=== PATIENT | female | born 1975 | race Caucasian/White ===

== ENCOUNTER → 2016-08-20 | Outpatient (CLI) | payer BC ==
[~2016-08-20] MED LIST: ERGO1CAP35 PO; ESCI10TA17 PO; OXYC-57 PO; SUMA100T16 PO
[2016-08-20 14:20] LABS: BASO % 0.2 %; BASO ABS # 0.01 K/uL (0-0.2); EOS % 1.5 %; HEMATOCRIT 41.4 % (37-47); IG% 0.5 %; LYMPH % 12.2 %; LYMPH ABS # 0.73 K/uL (1.2-3.4); MEAN CORPUSCULAR HEMOGLOBIN 29.3 pg (25-34); MEAN PLATELET VOLUME 10.2 fL (7.4-10.4); NEUT % 81.6 %; PLATELET COUNT 244 K/uL (130-400); WHITE BLOOD COUNT 5.96 K/uL (4.8-10.8)
[2016-08-20 14:21] LABS: COMPLETE YES; MEAN CORPUSCULAR HGB CONC 32.6 g/dl (32-36)
[2016-08-20 14:50] LABS: ALB/GLOB RATIO 0.9 (0.9-2); ALKALINE PHOSPHATASE 90 U/L (45-117); ALT/SGPT 33 U/L (12-78); AST/SGOT 22 U/L (15-37); BLOOD UREA NITROGEN 7 mg/dl (7-18); BUN/CREATININE RATIO 6.1 (10-20); CALCIUM 8.8 mg/dl (8.5-10.1); CARBON DIOXIDE 25 mmol/L (21-32); CHLORIDE 106 mmol/L (98-107); GLUCOSE 285 mg/dl (70-99); POTASSIUM 3.9 mmol/L (3.5-5.1); SODIUM 140 mmol/L (136-145)
--- NOTE | 2016-08-20 15:28 | DIAGNOSTIC IMAGING REPORT ---
CT ANGIOGRAM OF THE CHEST CLINICAL HISTORY: Atypical chest pain. Dyspnea. Hypoxia. Tachycardia. COMPARISON STUDY: No priors. TECHNIQUE: Following the IV administration of 85 cc of Optiray 320, CT angiogram of the chest was performed from the upper abdomen to the thoracic inlet utilizing the pulmonary embolus protocol. Images are reviewed in the axial, sagittal, and coronal planes. 3-D MIPS images are created and assessed. IV contrast was administered without complication. The examination is moderately degraded by motion artifact. CT DOSE: 629.39 mGy.cm FINDINGS: Thyroid: Imaged portions of the thyroid gland are normal in size and attenuation. A 10 mm low-attenuation nodule is noted in the left lobe. Thoracic aorta: The thoracic aorta is normal in caliber and demonstrates standard 3-vessel arch anatomy. No dissection is seen. Pulmonary vasculature: The pulmonary trunk is normal in caliber. There are no filling defects identified in main, lobar, or proximal segmental pulmonary branches to suggest pulmonary embolus. Evaluation of the peripheral branches is degraded by motion artifact. Heart: The heart is mildly enlarged and without pericardial effusion. Lungs and pleural spaces: Evaluation of the lung parenchyma is degraded by respiratory motion artifact. No airspace consolidation or pleural effusion is seen. The trachea and central airways are clear. Mediastinum: There is no mediastinal lymphadenopathy. Netta: Clear. Axillae: There is no axillary lymphadenopathy. Upper abdomen: The liver is enlarged and steatotic. Partially visualized upper abdominal viscera is otherwise within normal limits. Skeletal structures: No lytic or blastic bony lesions are seen. IMPRESSION: 1. There is no evidence of pulmonary embolus in the main, lobar, or proximal segmental pulmonary arteries. 2. The lungs are clear. 3. Hepatomegaly and severe hepatic steatosis. 4. Mild cardiomegaly. 5. There is a 10 mm low-attenuation nodule in the left lobe of the thyroid gland. Follow-up with a nonemergent thyroid ultrasound is recommended for further interrogation. Electronically signed by: Carlos Hills M.D. 08/20/2016 3:27 PM Dictated Date/Time: 08/20/2016 3:23 PM
== END | disposition home or self-care (01) ==
LOC: C.CTS 13:56
PROVIDERS: ATTEND Family Medicine
DX: R06.02 Shortness of breath (principal); R07.9 Chest pain, unspecified; R09.02 Hypoxemia; K76.0 Fatty (change of) liver, not elsewhere classified; I51.7 Cardiomegaly; R16.0 Hepatomegaly, not elsewhere classified

== ENCOUNTER → 2016-08-22 | Outpatient (CLI) | payer BC ==
--- NOTE | 2016-08-22 13:51 | DIAGNOSTIC IMAGING REPORT ---
THYROID ULTRASOUND HISTORY: CARDIOMEGALY, THYROID NODULE SEEN ON CT COMPARISON: Chest CT 08/20/2016. FINDINGS: Right lobe: 4.7 x 2.1 x 1.3 cm. No nodules. Left lobe: 4.2 x 1.4 x 1.5 cm. There is a heterogeneous solid nodule within the lower pole containing punctate internal calcifications. This measures 1.6 x 0.8 x 1.2 cm. Isthmus: 5 mm in thickness. No nodules. IMPRESSION: A 1.6 x 1.2 x 0.8 cm nodule within the lower pole of the left thyroid lobe. Recommend ultrasound-guided fine-needle aspiration for further evaluation. Electronically signed by: Dirk Humphrey M.D. 08/22/2016 1:50 PM Dictated Date/Time: 08/22/2016 1:48 PM
--- NOTE | 2016-08-23 18:11 | ECHOCARDIOGRAM REPORT ---
*NOTICE TO RECEIVING [employer] This information is strictly Confidential and protected under [place] law. [place] law prohibits you from making any further disclosure of this information unless further disclosure is expressly permitted by the written consent of the person to whom it pertains or is authorized by law. A general authorization for the release of medical or other information is not sufficient for this purpose. Hospital accepts no responsibility if the information is made available to any other person, INCLUDING THE PATIENT. Interpretation Summary * Name: GRACIELA GARDNER Study Date: 08/22/2016 01:54 PM BP: 155/72 mmHg * Patient Location: [facility] HR: 98 * : 1975 (M/d/yyyy) Gender: Female Height: 60 in * Age: 41 yrs Ethnicity: CA Weight: 225 lb * * Reason For Study: CARDIOMEGALY * BSA: 2.0 m2 * -- Conclusions -- * 1. The left ventricle is normal in size. Left ventricular systolic function is normal. EF 55-60%. No regional wall motion abnormalities. There is normal left ventricular wall thickness. * 2. No significant valvular abnormalities. * 3. No prior study available for comparison. Procedure Details * A complete two-dimensional transthoracic echocardiogram was performed (2D, M-mode, Doppler and color flow Doppler). Left Ventricle * The left ventricle is normal in size. * There is normal left ventricular wall thickness. * Left ventricular systolic function is normal. * Ejection Fraction = 55-60%. * No regional wall motion abnormalities noted. Right Ventricle * The right ventricle is normal in size and function. * The right ventricular systolic function is normal as assessed by tricuspid annular plane systolic excursion (TAPSE) (normal >1.5 cm). Atria * The left atrial size is normal. * Right atrial size is normal. * There is no evidence of atrial septal defect, but resolution does not allow assessment for a patent foramen ovale. Mitral Valve * The mitral valve leaflets appear normal. There is no evidence of stenosis, fluttering, or prolapse. * There is no mitral regurgitation noted. Tricuspid Valve * The tricuspid valve is not well visualized, but is grossly normal. * There is no tricuspid stenosis. * There is trace tricuspid regurgitation. Aortic Valve * The aortic valve is normal in structure and function. * The aortic valve is trileaflet. * No hemodynamically significant valvular aortic stenosis. * No aortic regurgitation is present. Pulmonic Valve * The pulmonary valve is inadequately visualized, but the Doppler data is adequate for interpretation. * There is no pulmonic valvular stenosis. * There is no significant pulmonary regurgitation. Great Vessels * The aortic root is normal size. * Aortic arch of normal dimension. Pericardium/Pleural * There is no pericardial effusion. Great Vessels * IVC not well visualized. MMode 2D Measurements and Calculations IVSd 1.0 cm IVSs 1.3 cm LVIDd 3.6 cm LVIDs 2.5 cm LVPWd 1.1 cm LVPWs 1.6 cm IVS/LVPW 0.93 FS 31.3 % EDV(Teich) 55.7 ml ESV(Teich) 22.3 ml EF(Teich) 60.0 % EDV(cubed) 48.0 ml ESV(cubed) 15.6 ml EF(cubed) 67.5 % % IVS thick 32.5 % % LVPW thick 46.4 % LV mass(C)d 117.0 grams LV mass(C)dI 59.6 grams/m\S\2 LV mass(C)s 120.2 grams LV mass(C)sI 61.3 grams/m\S\2 SV(Teich) 33.4 ml SI(Teich) 17.0 ml/m\S\2 SV(cubed) 32.4 ml SI(cubed) 16.5 ml/m\S\2 Ao root diam 3.1 cm Ao root area 7.7 cm\S\2 LA dimension 3.2 cm LA/Ao 1.0 LVAd ap4 25.2 cm\S\2 LVLd ap4 7.6 cm EDV(MOD-sp4) 68.2 ml EDV(sp4-el) 70.4 ml LVAs ap4 16.1 cm\S\2 LVLs ap4 7.2 cm ESV(MOD-sp4) 30.1 ml ESV(sp4-el) 30.8 ml EF(MOD-sp4) 55.8 % EF(sp4-el) 56.3 % LVAd ap2 24.0 cm\S\2 LVLd ap2 7.5 cm EDV(MOD-sp2) 62.2 ml EDV(sp2-el) 65.6 ml LVAs ap2 14.9 cm\S\2 LVLs ap2 6.5 cm ESV(MOD-sp2) 28.7 ml ESV(sp2-el) 28.9 ml EF(MOD-sp2) 53.9 % EF(sp2-el) 55.9 % LVLd %diff -2.17 % EDV(MOD-bp) 66.1 ml LVLs %diff -9.47 % ESV(MOD-bp) 30.2 ml EF(MOD-bp) 54.3 % SV(MOD-sp4) 38.1 ml SI(MOD-sp4) 19.4 ml/m\S\2 SV(MOD-sp2) 33.5 ml SI(MOD-sp2) 17.1 ml/m\S\2 SV(MOD-bp) 35.9 ml SI(MOD-bp) 18.3 ml/m\S\2 SV(sp4-el) 39.7 ml SI(sp4-el) 20.2 ml/m\S\2 SV(sp2-el) 36.6 ml SI(sp2-el) 18.7 ml/m\S\2 Doppler Measurements and Calculations MV E max flaco 84.3 cm/sec MV A max flaco 62.7 cm/sec MV E/A 1.3 MV dec time 0.24 sec TV E max flaco 56.3 cm/sec
== END ==
LOC: C.ULTR 13:10
PROVIDERS: ATTEND Family Medicine
DX: I51.7 Cardiomegaly (principal); E04.1 Nontoxic single thyroid nodule

== ENCOUNTER → 2016-10-30 | Outpatient (CLI) | payer BC ==
[~2016-10-30] VITALS: Ht 152.4 cm; Wt 102.3 kg
[2016-10-30 10:33] VITALS: BP 135/92; PULSE 102; Ht 152.4 cm; Wt 102.3 kg
== END | disposition home or self-care (01) ==
LOC: C.NEUR 09:48
PROVIDERS: ATTEND Internal Medicine Pulmonary Disease
DX: G47.33 Obstructive sleep apnea (adult) (pediatric) (principal); F45.8 Other somatoform disorders; E66.01 Morbid (severe) obesity due to excess calories

== ENCOUNTER → 2016-12-24 | Outpatient (CLI) | payer BC ==
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
== END | disposition home or self-care (01) ==
LOC: C.NEUR 09:54
PROVIDERS: ATTEND Internal Medicine Pulmonary Disease
DX: G47.33 Obstructive sleep apnea (adult) (pediatric) (principal); F45.8 Other somatoform disorders; E66.01 Morbid (severe) obesity due to excess calories

== ENCOUNTER → 2017-05-13 | Outpatient (CLI) | payer BC ==
[2017-05-13 14:46] LABS: INFLUENZA B ANTIGEN Neg for Influ B (NEG)
== END | disposition home or self-care (01) ==
LOC: C.LABSPEC 14:11
PROVIDERS: ATTEND Family Medicine
DX: J02.9 Acute pharyngitis, unspecified (principal)

== ENCOUNTER → 2017-07-24 | Outpatient (CLI) | payer BC ==
--- NOTE | 2017-07-27 07:48 | MAMMOGRAPHY REPORT ---
BILATERAL DIGITAL DIAGNOSTIC MAMMOGRAM TOMOSYNTHESIS WITH CAD AND TARGETED LEFT ULTRASOUND: 07/24/2017 CLINICAL HISTORY: The patient reports a palpable left breast lump for approximately 1 week. She chanell es any known injury to the left breast. TECHNIQUE: Breast tomosynthesis in addition to standard 2D mammography was performed. Current study was also evaluated with a Computer Aided Detection (CAD) system. Bilateral CC and MLO 2D and tomosyn thesis images were obtained. COMPARISON: No prior exams were available for comparison. BREAST COMPOSITION: The tissue of both breasts is almost entirely fatty. FINDINGS: A triangle marker elder the site of the palpable lump in the left breast at approximately 1 2:00. Minimal strandy density is seen in this region. Additionally, there is an ovoid 12 mm asymmet ry seen at the site of the lump on the MLO tomosynthesis images only, which is of mixed density inclu ding fat density and may represent fat necrosis. The remainder of both breasts are negative, without suspicious masses, calcifications, or areas of architectural distortion noted. Targeted ultrasound was performed of the area of the palpable lump pointed out by the patient, in the left breast at approximately 12:00, 9 cm from the nipple. At the site of the palpable lump there is a superficial oval circumscribed isoechoic mass with a few internal anechoic portions, measuring 9 x 4 x 7 mm. This likely corresponds with the palpable lump and likely corresponds with the ovoid mamm ographic asymmetry. Adjacent to this are two small anechoic circumscribed masses which have the appe arance of oil cysts, one measuring 2 x 4 mm and the other measuring 2 mm. The findings have the mamm ographic and sonographic appearance of fat necrosis. On questioning, the patient denies any known tr auma to the region. The options of short interval follow-up versus biopsy were discussed with the bayron gordillo, and at this time we will opt for biopsy. IMPRESSION: ACR BI-RADS CATEGORY 4: SUSPICIOUS, TARGETED ULTRASOUND ACR BI-RADS CATEGORY 4: SUSPICIO US Mixed echogenicity circumscribed 9 mm mass at the site of the palpable lump in the left 12:00 breast which has mammographic and sonographic features of probable fat necrosis. However, the patient denie s any known trauma to the region. Therefore, the finding is indeterminate and ultrasound-guided core needle biopsy is recommended for further evaluation. A phone call was made to the physician's office to confirm faxed results were received. The patient has been verbally notified of the results. She tentatively scheduled the biopsy before leaving the [facility]. Approximately 10% of breast cancers are not detected with mammography. A negative mammographic report should not delay biopsy if a clinically suggestive mass is present. Roya Segundo M.D. ah/:07/24/2017 09:12:30 Passenger Service Supervisor: Kristyn BRYANT(Ran)(Marcy), [facility] letter sent: Abnormal 4/5 BI-RADS Code: ACR BI-RADS Category 4: Suspicious Ultrasound BI-RADS: ACR BI-RADS Category 4: Suspici ous
== END | disposition home or self-care (01) ==
LOC: C.MAMM 07:53
PROVIDERS: ATTEND Family Medicine
DX: N63.20 Unspecified lump in the left breast, unspecified quadrant (principal)

== ENCOUNTER → 2017-07-31 | Outpatient (CLI) | payer BC ==
--- NOTE | 2017-07-31 08:18 | Discharge Instructions ---
Discharge Instructions Procedure Procedure Date: July 31, 2017. Reason for visit: Left Mass. Discharge Discharge Date: July 31, 2017. Discharge Diagnosis: status post breast biopsy Instructions Activity Recommendations: Additional Limitations (see below) Return to School/Work: no limitations Recommended Home Diet: No Limitations Provider Instructions: ACTIVITY RECOMMENDATIONS: * No lifting, pushing, pulling or exercising the affected side for three days. RETURN TO SCHOOL/WORK: * You may return to work/school after the procedure, but do not perform any strenuous activities for 24 to 48 hours. MEDICATIONS: * Tylenol (two 325 mg) every four to six hours if needed for mild pain (if not allergic to Tylenol). DIET: * Resume previous diet. SPECIAL CARE INSTRUCTIONS: * Keep biopsy site dry for 24 hours. May shower after 24 hours, but do not soak (bathe) incision. * May remove Tegaderm (plastic patch) tomorrow AFTER showering. * Leave the steri-strips on for one week. Allow the steri-strips to fall off by themselves. If not off after one week, you may remove them. You may place a Bandaid crosswise over the strips, if desired. * Apply ice 10 minutes on and 10 minutes off as needed. * Wear a bra at bedtime to sleep more comfortably for 2-3 days. * Your referring physician should have the results after approximately 5 to 7 business days. * Call for unusual bleeding, fever, drainage, etc or if you have any questions call during normal business hours or after hours call Dr Segundo, . FOLLOW UP VISIT: Follow-up with Referring Physician as scheduled. Allergies Coded Allergies: No Known Allergies (Verified , `, 05/21/15) Tho Lindsay Recommendations: Call your doctor if: * Temperature above 101 degrees * Pain not relieved by pain medicine ordered * There is increased drainage or redness from any incision * You have any unanswered questions or concerns. Your Doctors Instructions noted above were prepared by provider Roya Segundo. Patient Signature Section: Patient Instructions Signature Page oCrie Camarena Patient (or Guardian) Signature/Date: I have read and understand the instructions given to me by my caregivers. Caregiver/RN/Doctor Signature/Date: The above-named patient and/or guardian has received patient instructions on this date. + Original Patient Signature Page (only) stays with chart. Please make copy for patient.
--- NOTE | 2017-07-31 14:18 | MAMMOGRAPHY REPORT ---
ULTRASOUND GUIDED BIOPSY LEFT BREAST: 07/31/2017 CLINICAL HISTORY: Left 12:00 breast mass. PATIENT CONSENT: The procedure, risks and benefits were discussed with the patient and informed writt en consent was obtained. A timeout was performed immediately prior to the procedure. PROCEDURE DESCRIPTION: With ultrasound guidance, aseptic technique, and lidocaine as the local anesth etic (1% lidocaine to anesthetize the skin and 1% lidocaine with epinephrine to anesthetize the deepe r tissues), the mixed echogenicity mass of concern in the left 12:00 breast, 9 cm from the nipple, wa s sampled 3 times with a 14-gauge achieve biopsy needle. Immediately thereafter, with ultrasound guid ance, aseptic technique, and lidocaine as the local anesthetic, a metallic localizer clip was placed at the biopsy site. Direct pressure was applied to the site immediately post procedure and hemostasi s was achieved. Postprocedure unilateral mammograms were performed to confirm clip placement. The pa duy tolerated the procedure without complication. She was given wound care instructions. The speci mens were sent to pathology for analysis. COMPARISON: Comparison is made to exams dated: 07/24/2017 ultrasound and 07/24/2017 mammogram - [facility]. IMPRESSION: ULTRASOUND GUIDED BIOPSY Ultrasound-guided core needle biopsy of the left 12:00 breast mass, with clip placement. The patient will receive pathology results from her referring provider. Roya Segundo M.D. ah/:07/31/2017 08:20:15 Hydraulic Engineer: Kristyn BRYANT(R)(M), [facility]
--- NOTE | 2017-07-31 14:21 | MAMMOGRAPHY REPORT ---
UNILATERAL LEFT DIGITAL DIAGNOSTIC MAMMOGRAM TOMOSYNTHESIS: 07/31/2017 CLINICAL HISTORY: Status post left breast biopsy. TECHNIQUE: Breast tomosynthesis in addition to standard 2D mammography was performed. Postprocedura l left CC and ML tomosynthesis images were obtained. COMPARISON: Comparison is made to exams dated: 07/24/2017 mammogram and 07/24/2017 ultrasound - [facility]. BREAST COMPOSITION: The tissue of the left breast is almost entirely fatty. FINDINGS: A new biopsy marker clip is seen in the left 12:00 breast in the expected location of the b iopsied left 12:00 breast mass. No significant postbiopsy hematoma is seen. IMPRESSION: POST PROCEDURE IMAGING FOR MARKER PLACEMENT New biopsy marker clip status post left breast biopsy. Pathology results are pending. Approximately 10% of breast cancers are not detected with mammography. A negative mammographic report should not delay biopsy if a clinically suggestive mass is present. Roya Segundo M.D. ah/:07/31/2017 08:53:23 Child Welfare Worker: Kristyn BRYANT(Ran)(Marcy), [facility] BI-RADS Code: Post Procedure Imaging For Marker Placement
== END | disposition home or self-care (01) ==
LOC: C.MAMM 07:55
PROVIDERS: ATTEND Family Medicine
DX: N63.20 Unspecified lump in the left breast, unspecified quadrant (principal); N64.1 Fat necrosis of breast